=== PATIENT | male | born 1980 | race Caucasian/White ===

== ENCOUNTER 2017-01-09 13:55 | Emergency (ER) | payer OTHER ==
[~2017-01-09] VITALS: Ht 162.6 cm; Wt 78.0 kg
[2017-01-09 13:55] VITALS: Ht 162.6 cm; Wt 78.0 kg
[~2017-01-09 13:55] MED LIST: ASPI-664 PO; ATOR40TA68 PO; CARV6.25 PO; CIPR500T4 PO; HYDR-902 PO; LISI-523 PO; ONDA4TAB14 PO; TAMS-14 PO; TICA90TA PO
[2017-01-09 14:20] VITALS: BP 142/89; PULSE 89; RESP 20; TEMP 98.3
[2017-01-09] MEDS ORDERED: LORAZEPAM 2 MG INJ IV ONE (14:30)
[2017-01-09 14:59] LABS: BASOPHILS % 0.3 % (0.0-2.0); EOSINOPHILS # 0.2 10^3/ul (0.0-0.5); EOSINOPHILS % 1.9 % (0.0-7.0); HEMATOCRIT 41.7 % (42.0-52.0); HEMOGLOBIN 13.7 g/dl (14.0-18.0); LYMPHOCYTES # 2.4 10^3/ul (0.8-2.9); LYMPHOCYTES % 24.1 % (15.0-51.0); MEAN CORPUSCULAR HEMOGLOBIN 27.6 pg (29.0-33.0); MEAN CORPUSCULAR HGB CONC 32.9 g/dl (32.0-37.0); MEAN CORPUSCULAR VOLUME 84.1 fl (82.0-101.0); MEAN PLATELET VOLUME 9.9 fl (7.4-10.4); MONOCYTE # 0.7 10^3/ul (0.3-0.9); MONOCYTES % 7.3 % (0.0-11.0); NEUTROPHIL # 6.7 10^3/ul (1.6-7.5); NEUTROPHILS % 66.1 % (39.0-77.0); PLATELET COUNT 218 10^3/UL (140-415); RED BLOOD COUNT 4.96 10^6/ul (4.70-6.10); RED CELL DISTRIBUTION WIDTH 13.5 % (11.5-14.5); WHITE BLOOD COUNT 10.1 10^3/ul (4.8-10.8)
[2017-01-09 15:23] LABS: ANION GAP 19 (8-16); BLOOD UREA NITROGEN 16 mg/dl (7-20); CALCIUM 9.3 mg/dl (8.4-10.2); CARBON DIOXIDE 24 mmol/L (21-31); CHLORIDE 105 mmol/L (97-110); CREATININE 1.02 mg/dl (0.61-1.24); GLUCOSE 93 mg/dl (70-220); POTASSIUM 3.9 mmol/L (3.5-5.1); SODIUM 144 mmol/L (135-144)
[2017-01-09 15:36] LABS: TROPONIN-I < 0.012 ng/ml (0.00-0.12)
--- NOTE | 2017-01-09 17:12 | ERD ---
ER Documentation Chief Complaint Chief Complaint To room with complaint of syncopal episodehx of stents placed HPI This is a 36 show male with a history of cardiac stents and severe anxiety. The patient said that they are having a conversation this morning about work- related issues at home. He said the conversation was extremely intense and stress provoking. The patient said he went into a very fast for a panic attack and he was severely hyperventilating. He said he got up the kitchen table during his hyperventilation stated go get his Ativan but as he was reaching for the bottle he was syncopal. Patient was quickly revived and was only unconscious for a few seconds. The patient was brought in by EMS in severe panic attack with crying and anxiety reaction. Did not have any chest pain shortness of breath pain in his neck jaws back no diaphoresis early he feels better ROS All systems reviewed and are negative except as per history of present illness. Medications Home Meds Active Scripts Ticagrelor* (Brilinta*) 90 Mg Tablet, 90 MG PO BID for 30 Days, TAB Prov:MATEO MICHELLE NP 06/11/15 Lisinopril* (Zestril*) 5 Mg Tab, 5 MG PO DAILY for 30 Days, TAB Prov:MATEO MICHELLE NP 06/11/15 Carvedilol* (Coreg*) 6.25 Mg Tab, 6.25 MG PO BID for 30 Days, TAB Prov:MATEO MICHELLE NP 06/11/15 Aspirin* (Aspirin* EC) 81 Mg Tabec, 81 MG PO DAILY for 30 Days Prov:MATEO MICHELLE NP 06/11/15 Discontinued Reported Medications Atorvastatin* (Atorvastatin*) 40 Mg Tablet, 40 MG PO QHS, #30 TAB 10/26/15 Discontinued Scripts Ondansetron (Ondansetron Odt) 4 Mg Tab.rapdis, 4 MG PO Q6H Y for NAUSEA AND/OR VOMITING, #10 TAB Prov:NAN SEBASTIAN 01/16/16 Hydrocodone/Acetaminophen (Tracy 10-325 Tablet) 1 Each Tablet, 1 TAB PO Q6H Y for PAIN, #20 TAB Prov:NAN SEBASTIAN 01/16/16 Tamsulosin Hcl* (Flomax*) 0.4 Mg Cap.er.24h, 0.4 MG PO QPM, #7 CAP Prov:NAN SEBASTIAN. 01/16/16 Ciprofloxacin Hcl* (Ciprofloxacin Hcl*) 500 Mg Tablet, 500 MG PO BID for 3 Days , TAB Prov:NAN SEBASTIAN 01/16/16 Allergies Allergies: Coded Allergies: No Known Allergy (Unverified , 01/09/17) PMhx/Soc History of Surgery: No Anesthesia Reaction: No Hx Neurological Disorder: No Hx Respiratory Disorders: No Hx Cardiac Disorders: Yes (Stents Placed ) Hx Psychiatric Problems: No Hx Miscellaneous Medical Probl: Yes (Anxiety) Hx Alcohol Use: No Hx Substance Use: No Hx Tobacco Use: No Smoking Status: Never smoker FmHx Family History: No coronary disease Physical Exam Vitals Vital Signs Date Time Temp Pulse Resp B/P Pulse Ox O2 Delivery O2 Flow Rate FiO2 01/09/17 14:20 98.3 89 20 142/89 98 Room Air 01/09/17 13:55 98.3 65 20 142/89 97 Physical Exam Const: Well-developed, well-nourished Head: Atraumatic, normocephalic Eyes: Normal Conjunctiva, PERRLA, EOMI, normal sclera, no nystagmus ENT: Normal External Ears, Nose and Mouth, moist mucus membranes. Neck: Full range of motion. No meningismus, no lymphadenopathy. Resp: Clear to auscultation bilaterally, no wheezing, rhonchi, rales Cardio: Regular rate and rhythm, no murmurs, S1 S2 present Abd: Soft, non tender x 4, non distended. Normal bowel sounds, no guarding or rebound, no pulsitile abdominal masses or bruits Skin: No petechiae or rashes, no ecchymosis , no maculopapular rash Back: No midline or flank tenderness Ext: No cyanosis, or edema, FROM x 4, normal inspection, neurovascularly intact x 4 Neur: Awake and alert, STR 5/5 x 4, sensation intact x 4, no focal findings, cerebellum intact Psych: Tearful and anxious Result Diagram: 01/09/17 1440 01/09/17 1440 Results 24 hrs Laboratory Tests Test 01/09/17 14:40 White Blood Count 10.110^3/ul Red Blood Count 4.9610^6/ul Hemoglobin 13.7g/dl Hematocrit 41.7% Mean Corpuscular Volume 84.1fl Mean Corpuscular Hemoglobin 27.6pg Mean Corpuscular Hemoglobin Concent 32.9g/dl Red Cell Distribution Width 13.5% Platelet Count 79562^3/UL Mean Platelet Volume 9.9fl Neutrophils % 66.1% Lymphocytes % 24.1% Monocytes % 7.3% Eosinophils % 1.9% Basophils % 0.3% Nucleated Red Blood Cells % 0.0/100WBC Neutrophils # 6.710^3/ul Lymphocytes # 2.410^3/ul Monocytes # 0.710^3/ul Eosinophils # 0.210^3/ul Basophils # 0.010^3/ul Nucleated Red Blood Cells # 0.010^3/ul Sodium Level 144mmol/L Potassium Level 3.9mmol/L Chloride Level 105mmol/L Carbon Dioxide Level 24mmol/L Anion Gap 19 Blood Urea Nitrogen 16mg/dl Creatinine 1.02mg/dl Glucose Level 93mg/dl Calcium Level 9.3mg/dl Troponin I < 0.012ng/ml Current Medications Medications (Trade) Dose Ordered Sig/[place] Route PRN Reason Start Time Stop Time Status Last Admin Dose Admin Lorazepam (Ativan) 1 mg ONCE ONCE IV 01/09/17 14:30 01/09/17 14:31 DC 01/09/17 14:43 Procedures/MDM EKG: Rate/Rhythm: Normal Sinus Rhythm,NL intervals QRS, ST, QT: NORMAL [place], QRS, QT] Impression: NORMAL EKG Patient's labs normal troponins negative. Patient was syncopal due to hyperventilatory state. Patient had a bad anxiety reaction to stressful conversation. Currently he feels fine cardiac workup is negative we will discharge home Departure Diagnosis: Primary Impression: Anxiety Additional Impression: Syncope Syncope type: unspecified Qualified Code: R55 - Syncope, unspecified syncope type Condition: Stable Patient Instructions: Causes of Syncope, Anxiety Reaction LEIGH BARRON DO Jan 09, 2017 17:12
== END 2017-01-09 17:42 | disposition home or self-care (01) ==
LOC: E/R 13:55
DX: F41.9 Anxiety disorder, unspecified (principal); Z79.82 Long term (current) use of aspirin
CPT/HCPCS: 80048; 84484; 85025; 93005; 96374; J2060; Z7502